=== PATIENT | male | born 1955 | race Caucasian/White ===

== ENCOUNTER 2020-06-18 22:14 | Inpatient (IN) | payer BC, OTHER, SELFPAY ==
[~2020-06-18] VITALS: Ht 160 cm; Wt 63.5 kg
[2020-06-18 22:58] VITALS: BP 114/67
[2020-06-19 02:01] LABS: CALCIUM 7.8 mg/dL (8.5-10.1); CARBON DIOXIDE 23.6 mmol/L (21-32); CHLORIDE SERUM 99 mmol/L (98-107); CREATININE SERUM 1.4 mg/dL (0.7-1.3); GFR1 54 mL/min; GLUCOSE SERUM 186 mg/dL (74-106); POTASSIUM SERUM 4.2 mmol/L (3.5-5.1); SODIUM SERUM 126 mmol/L (136-145)
[2020-06-19 02:06] LABS: ALKALINE PHOSPHATASE 180 U/L (46-116); ALT/SGPT 90 U/L (16-63); AST/SGOT 202 U/L (15-37); BILIRUBIN TOTAL 2.24 mg/dL (0.20-1.00); TOTAL PROTEIN, SERUM 6.2 g/dL (6.4-8.2)
[2020-06-19 02:14] LABS: ALBUMIN 1.7 g/dL (3.4-5.0)
[2020-06-19 02:15] LABS: C REACTIVE PROTEIN 31.6 mg/dL (<=0.9); LACTIC DEHYDROGENASE (LDH) 958 U/L (100-190)
[2020-06-19 02:26] LABS: FREE T4 1.38 ng/dL (0.76-1.46); FREE THYROXINE INDEX 2.3 ug/dL (1.4-4.5); T4(THYROXINE) 5.5 ug/dL (4.7-13.3)
[2020-06-19 02:43] LABS: T3 TOTAL 0.53 ng/mL
[2020-06-19 02:50] LABS: BASOPHIL % 0.6 % (0.2-1.5); PLATELET COUNT 133 x10^3mcL (152-348); RED CELL DISTRIBUTION WIDTH 15.7 % (12.1-16.2)
[2020-06-19 04:17] VITALS: Ht 160 cm; Wt 63.5 kg
[2020-06-19 05:00] VITALS: BP 67/36
[2020-06-19 09:20] VITALS: BP 87/55
[2020-06-19 10:29] VITALS: BP 99/65
== END 2020-06-19 16:35 | DRG 871 ==
LOC: ED 22:14 → IC 06-19 06:43
PROVIDERS: Specialist; ADMIT Internal Medicine; ATTEND Internal Medicine
PROC: 02HV33Z Insertion of Infusion Device into Superior Vena Cava, Percutaneous Approach (ICD-10-PCS; principal; 2020-06-19)
PROC: B548ZZA Ultrasonography of Superior Vena Cava, Guidance (ICD-10-PCS; 2020-06-19)
PROC: 5A12012 Performance of Cardiac Output, Single, Manual (ICD-10-PCS; 2020-06-19)
PROC: 0BH17EZ Insertion of Endotracheal Airway into Trachea, Via Natural or Artificial Opening (ICD-10-PCS; 2020-06-19)
DX: A41.9 Sepsis, unspecified organism (principal); U07.1 COVID-19; J96.01 Acute respiratory failure with hypoxia; I21.4 Non-ST elevation (NSTEMI) myocardial infarction; R65.21 Severe sepsis with septic shock; J12.82 Pneumonia due to coronavirus disease 2019; N17.9 Acute kidney failure, unspecified; G93.40 Encephalopathy, unspecified; M62.82 Rhabdomyolysis; K56.600 Partial intestinal obstruction, unspecified as to cause; E87.1 Hypo-osmolality and hyponatremia; N28.0 Ischemia and infarction of kidney; K81.0 Acute cholecystitis; D68.59 Other primary thrombophilia; I51.3 Intracardiac thrombosis, not elsewhere classified; I46.9 Cardiac arrest, cause unspecified
CPT/HCPCS: 36600; 83880; 84439; 85378; 87804; G0378; G0480; J0456; J1100; J1642; J2060; J2543; J2704; J3370; J3490; J7121; Q9967; U0003